=== PATIENT | female | born 1980 | race Hispanic/Latino ===

== ENCOUNTER 2018-06-26 11:31 | Observation (INO) | payer BC, OTHER, SELFPAY ==
[2018-06-26] MEDS ORDERED: NA CHLORIDE 0.9% 1,000 ML ONE (12:08)
[2018-06-26] MEDS ORDERED: KETOROLAC 30 MG/ML INJ ONE (12:08)
[2018-06-26] MEDS ORDERED: ONDANSETRON 4 MG/2 ML VIAL ONE (12:08)
[2018-06-26] MEDS ORDERED: FAMOTIDINE 20 MG/2 ML VIAL IV ONE (12:08)
[2018-06-26 12:30] LABS: ALT/SGPT 33 U/L (12-78); AST/SGOT 22 U/L (15-37); Albumin 3.6 g/dL (3.4-5.0); Alkaline Phosphatase 110 U/L (45-117); BUN Blood Urea Nitrogen 6 mg/dL (7-18); Bicarbonate 27 mmol/L (21-32); Bilirubin Direct 0.1 mg/dL (0-0.2); Bilirubin Total 0.4 mg/dL (0.2-1.0); Glucose Level 132 mg/dL (74-106); Lipase 94 U/L (73-393); Protein, Total 7.7 g/dL (6.4-8.2); Sodium Level 137 mmol/L (136-145); Troponin I < 0.02 ng/mL (0.0-0.045)
[2018-06-26 12:32] LABS: Urine Bacteria <20 /HPF (<20); Urine Culture Reflex Order NOT NEEDED; Urine Mucus 1+ /HPF (NONE SEEN)
--- NOTE | 2018-06-26 12:38 | RAD REPORT ---
EXAM DESCRIPTION: US - Abdomen Exam Limited - 06/26/2018 12:19 pm CLINICAL HISTORY: Abdominal pain, right upper quadrant pain COMPARISON: None. FINDINGS: Enlarged 18 millimeter gallstone is present fixed in the neck with additional smaller gall stones mobile within the lumen. Trace amount of pericholecystic fluid is present. No abnormal wall th ickening. No common duct stone or biliary tree dilatation identified. IMPRESSION: Large gallstone fixed in the neck with additional small mobile gallstones. Trace amount of pericholecystic fluid. No biliary tree dilatation.
[2018-06-26 12:41] LABS: Absolute Monocytes 0.2 K/uL (0.1-1.3); Absolute Neutrophil 7.3 K/uL (1.8-8.0); Basophils % 0.2 % (0-1.3); Eosinophils % 0.5 % (0-4.4); Hematocrit 37.1 % (36.0-45.0); Lymphocytes % 11.3 % (15.3-44.8); MCH 29.3 pg (27.0-35.0); MCV 84.3 fL (80-100); MPV 7.1 fL (7.6-11.3); Monocytes % 2.5 % (3.3-12.3)
--- NOTE | 2018-06-26 13:06 | RAD REPORT ---
EXAM DESCRIPTION: CT - Abdomen Pelvis W Contrast - 06/26/2018 12:51 pm CLINICAL HISTORY: Abdominal pain, epigastric pain COMPARISON: Ultrasound same date TECHNIQUE: Biphasic, helical CT imaging of the abdomen and pelvis was performed following 100 ml non -ionic IV contrast. Oral contrast was given. All CT scans are performed using dose optimization technique as appropriate and may include automated exposure control or mA/KV adjustment according to patient size. FINDINGS: No suspicious findings in the lung bases. The liver, spleen, and pancreas show no suspicious findings. No abnormal biliary tree dilatation. No acute gallbladder finding on CT imaging. Earlier ultrasound study showed a fixed stone in the neck wi th additional small gallstones. No wall thickening or pericholecystic fluid appreciated on this study . Symmetric renal function is seen with no hydronephrosis or suspicious renal mass. No adrenal abnormal ity. No pyelonephritis or acute renal parenchymal process. No urinary bladder abnormality. Uterus and ovaries show no suspicious findings. Tubal ligation clips are present. No gastric dilatation or wall thickening. Small bowel loops are not dilated. There are several fluid- filled distal small bowel loops. No evidence for appendicitis. No acute colon finding. No free air, free fluid or inflammatory stranding. No mass or bulky lymphadenopathy. Patient has a v ivy small fat only umbilical hernia. Fat extends into the left inguinal canal. Patient has an enlarge d left gonadal vein. No enhancement, thrombus or other finding to indicate an acute process. This is probably an incidental finding for this patient. No suspicious bony findings. IMPRESSION: Gallbladder and biliary tree show no significant findings on CT imaging. Earlier ultraso und demonstrated a stone fixed in the neck with additional smaller stones present. Fluid-filled distal small bowel loops are present. A nonspecific enteritis would be a consideration.
[2018-06-26 13:20] LABS: Blood Morphology Comment NOT SEEN (NOT SEEN); Platelet Estimate ADEQ; Urine White Blood Cell Casts OK
[2018-06-26] MEDS ORDERED: FENTANYL CITR 100 MCG/2 ML ONE (13:35)
--- NOTE | 2018-06-26 13:35 | ER ---
Nurse's Notes [facility] Name: Shea Gutierrez Age: 38 yrs Sex: Female : 1980 Arrival Date: 06/26/2018 Time: 11:34 Bed 15 Private MD: Ross Edgar Diagnosis: Acute upper abdominal Pain;Choledocholithiasis Presentation: 06/26 11:37 Presenting complaint: Patient states: Epigastric pain that started this morning, with sg nausea, reports hot flahses, denies F/V/Chills/D, reports taking omeprazole PO this morning due to pain feeling like indigestion and burning, denies SOB/difficulty breathing, denies prior cardiac history. Transition of care: patient was not received from another setting of care. Onset of symptoms was June 26, 2018. Risk Assessment: Do you want to hurt yourself or someone else? Patient reports no desire to harm self or others. Initial Sepsis Screen: Does the patient meet any 2 criteria? No. Patient's initial sepsis screen is negative. Does the patient have a suspected source of infection? No. Patient's initial sepsis screen is negative. Care prior to arrival: None. 11:37 Method Of Arrival: Ambulatory sg 11:37 Acuity: NINO 3 sg Historical: - Allergies: 11:39 NKDA; sg - PMHx: 11:39 ADD/ADHD; Anxiety; Hypothyroidism; sg - PSHx: 11:39 ; left ankle; sg - Immunization history:: Adult Immunizations up to date. - Social history:: Smoking status: Patient/guardian denies using tobacco. - Ebola Screening: : Patient negative for fever greater than or equal to 101.5 degrees Fahrenheit, and additional compatible Ebola Virus Disease symptoms Patient denies exposure to infectious person Patient denies travel to an Ebola-affected area in the 21 days before illness onset No symptoms or risks identified at this time. - Family history:: not pertinent. - Hospitalizations: : No recent hospitalization is reported. Screenin:54 Abuse screen: Denies threats or abuse. Denies injuries from another. Nutritional ph screening: No deficits noted. Tuberculosis screening: No symptoms or risk factors identified. Fall Risk None identified. Assessment: 11:45 General: Appears in no apparent distress. uncomfortable, obese, well groomed, Behavior ph is calm, cooperative, appropriate for age, Reports chills for 12-24 hours. Pain: Complains of pain in abdomen and epigastric area Pain does not radiate. Pain began 4 hours ago. Neuro: Level of Consciousness is awake, alert, obeys commands, Oriented to person, place, time, situation. Cardiovascular: Reports chest pain, nausea, Denies shortness of breath, syncope, vomiting, Capillary refill < 3 seconds in bilateral fingers Patient's skin is warm and dry. Chest pain is located in epigastric area. Respiratory: Airway is patent Respiratory effort is even, unlabored. GI: Abdomen is round non-distended, Bowel sounds present X 4 quads. Abd is soft X 4 quads Abdomen is tender to palpation in epigastric area and right upper quadrant Reports upper abdominal pain, epigastric pain, nausea, Patient currently denies diarrhea, vomiting. Derm: Skin is intact, is healthy with good turgor, Skin is pink, warm \T\ dry. Musculoskeletal: Circulation, motion, and sensation intact. Range of motion: intact in all extremities. 13:43 Reassessment: Patient appears in no apparent distress at this time. Patient and/or kr2 family updated on plan of care and expected duration. Pain level reassessed. Patient is alert, oriented x 3, equal unlabored respirations, skin warm/dry/pink. States pain is decreased. Vital Signs: 11:40 Pulse 99 MON; Resp 17; Temp 97.9; Pulse Ox 100% on R/A; Weight 77.11 kg (R); Pain 4/10; sg 13:25 BP 150 / 102; Pulse 75; Resp 16; Pulse Ox 100% ; kr2 ED Course: 11:34 Patient arrived in ED. sb2 11:35 Ross Edgar DO is Private Physician. sb2 11:37 Davidson Salas MD is Attending Physician. wa 11:38 Triage completed. sg 11:41 Arm band placed on. sg 11:52 Carley Knight, RN is Primary Nurse. ph 11:55 Radiology exam delayed due to lab results not completed at this time. (BUN/Creatinine). sj 11:58 Initial lab(s) drawn, by me, sent to lab. Inserted saline lock: 20 gauge in left dh3 antecubital area, using aseptic technique. Blood collected. 12:12 Urine collected: clean catch specimen, cloudy. dh3 12:17 US Abdomen Limited In Process Unspecified. EDMS 12:51 CT Abd/Pelvis - W/Contrast In Process Unspecified. EDMS 12:54 Patient has correct armband on for positive identification. Placed in gown. Bed in low ph position. Call light in reach. Side rails up X 1. segmental wall installer on. Pulse ox on. NIBP on. Warm blanket given. 12:54 Patient maintains SpO2 saturation greater than 95% on room air. ph 13:31 Taylor Edgar MD is Hospitalizing Provider. wa 13:39 EKG done, by broadband technician. reviewed by Davidson Salas MD. sm3 Administered Medications: 12:10 Drug: NS 0.9% 1000 ml Route: IV; Rate: 1 bolus; Site: left antecubital; ph 12:10 Drug: Zofran 4 mg Route: IVP; Site: left antecubital; ph 13:55 Follow up: Response: No adverse reaction kr2 12:10 Drug: Pepcid 20 mg Route: IVP; Site: left antecubital; ph 13:55 Follow up: Response: No adverse reaction kr2 12:10 Drug: TORadol 30 mg Route: IVP; Site: left antecubital; ph 13:54 Follow up: Response: No adverse reaction; Pain is decreased kr2 13:38 Drug: fentaNYL (PF) 25 mcg Route: IVP; Site: left antecubital; kr2 13:54 Follow up: Response: No adverse reaction; Pain is decreased kr2 13:38 Drug: Flagyl 500 mg Volume: 100 ml; Route: IVPB; Rate: 200 ml/hr; Infused Over: 30 kr2 mins; Site: left antecubital; 13:53 Follow up: Response: No adverse reaction; IV Status: Completed infusion kr2 13:54 Drug: LevaQUIN 500 mg Volume: 100 ml; Route: IVPB; Infused Over: 60 mins; Site: left kr2 antecubital; Outcome: 13:34 Decision to Hospitalize by Provider. wa 15:48 Patient left the ED. kr2 Signatures: Dispatcher [employer] EDMS Milton Banerjee RN RN sg Jones, Susan sj Hall, Patricia, RN RN ph Herrera, Deanna 3 Davidson Salas MD MD wa Reaves, Karey, RN RN kr2 Ella Casanova sb2 Whitney Rolle sm3
--- NOTE | 2018-06-26 13:35 | EDPHYS ---
Physician Documentation [facility] Name: Shea Gutierrez Age: 38 yrs Sex: Female : 1980 Arrival Date: 06/26/2018 Time: 11:34 Bed 15 Private MD: Ross Edgar ED Physician Davidson Salas HPI: 06/26 11:53 This 38 yrs old Female presents to ER via Ambulatory with complaints of Chest wa Pain, Nausea. 11:53 The patient or guardian reports chest pain that is located primarily in the xyphoid wa area and RUQ. Onset: today, 5 AM . The pain radiates to Associated signs and symptoms: Pertinent positives: nausea, vomiting, x4, Pertinent negatives: lightheadedness, palpitations, shortness of breath, syncope. The chest pain is described as dull, causing indigestion. Duration: The patient or guardian reports a single episode, that is still ongoing, and worsening. Modifying factors: The symptoms are alleviated by nothing. the symptoms are aggravated by nothing. Severity of pain: At its worst the pain was moderate in the emergency department the pain is actually worse moderately. The patient has experienced similar episodes in the past, a few times, less painful however. The patient has not recently seen a physician. states has had "indigestion" in the past. This more severe. did not respond to tums ingestion. denies SOB. states pain worse with deep breathing however. Historical: - Allergies: 11:39 NKDA; sg - PMHx: 11:39 ADD/ADHD; Anxiety; Hypothyroidism; sg - PSHx: 11:39 ; left ankle; sg - Immunization history:: Adult Immunizations up to date. - Social history:: Smoking status: Patient/guardian denies using tobacco. - Ebola Screening: : Patient negative for fever greater than or equal to 101.5 degrees Fahrenheit, and additional compatible Ebola Virus Disease symptoms Patient denies exposure to infectious person Patient denies travel to an Ebola-affected area in the 21 days before illness onset No symptoms or risks identified at this time. - Family history:: not pertinent. - Hospitalizations: : No recent hospitalization is reported. ROS: 11:57 Constitutional: Negative for fever, chills, and weight loss, Eyes: Negative for injury, wa pain, redness, and discharge, ENT: Negative for injury, pain, and discharge, Neck: Negative for injury, pain, and swelling, Respiratory: Negative for shortness of breath, cough, wheezing, and pleuritic chest pain, : Negative for injury, bleeding, discharge, and swelling, MS/Extremity: Negative for injury and deformity, Skin: Negative for injury, rash, and discoloration, Neuro: Negative for headache, weakness, numbness, tingling, and seizure, Psych: Negative for depression, anxiety, suicide ideation, homicidal ideation, and hallucinations. 11:57 Cardiovascular: Positive for epigastric pain, Negative for edema, orthopnea, palpitations, paroxysmal nocturnal dyspnea. 11:57 Respiratory: Negative for cough, shortness of breath, wheezing. 11:57 Abdomen/GI: Positive for abdominal pain, nausea and vomiting, of the epigastric area, Negative for diarrhea. 11:57 Back: Positive for pain at rest, of the thoracic area. 11:57 All other systems are negative. Exam: 11:59 Constitutional: This is a well developed, well nourished patient who is awake, alert, wa and in no acute distress. Head/Face: Normocephalic, atraumatic. Eyes: Pupils equal round and reactive to light, extra-ocular motions intact. Lids and lashes normal. Conjunctiva and sclera are non-icteric and not injected. Cornea within normal limits. Periorbital areas with no swelling, redness, or edema. ENT: Nares patent. No nasal discharge, no septal abnormalities noted. Tympanic membranes are normal and external auditory canals are clear. Oropharynx with no redness, swelling, or masses, exudates, or evidence of obstruction, uvula midline. Mucous membranes moist. Neck: Trachea midline, no thyromegaly or masses palpated, and no cervical lymphadenopathy. Supple, full range of motion without nuchal rigidity, or vertebral point tenderness. No Meningismus. Chest/axilla: Normal chest wall appearance and motion. Nontender with no deformity. No lesions are appreciated. Cardiovascular: Regular rate and rhythm with a normal S1 and S2. No gallops, murmurs, or rubs. Normal PMI, no JVD. No pulse deficits. Respiratory: Lungs have equal breath sounds bilaterally, clear to auscultation and percussion. No rales, rhonchi or wheezes noted. No increased work of breathing, no retractions or nasal flaring. Back: No spinal tenderness. No costovertebral tenderness. Full range of motion. Skin: Warm, dry with normal turgor. Normal color with no rashes, no lesions, and no evidence of cellulitis. MS/ Extremity: Pulses equal, no cyanosis. Neurovascular intact. Full, normal range of motion. Neuro: Awake and alert, GCS 15, oriented to person, place, time, and situation. Cranial nerves II-XII grossly intact. Motor strength 5/5 in all extremities. Sensory grossly intact. Cerebellar exam normal. Normal gait. Psych: Awake, alert, with orientation to person, place and time. Behavior, mood, and affect are within normal limits. 11:59 Abdomen/GI: Inspection: abdomen appears normal, Bowel sounds: normal, in all quadrants, Palpation: soft, in all quadrants, moderate abdominal tenderness, in the epigastric area and right upper quadrant, no appreciated organomegaly. Vital Signs: 11:40 Pulse 99 MON; Resp 17; Temp 97.9; Pulse Ox 100% on R/A; Weight 77.11 kg (R); Pain 4/10; sg 13:25 BP 150 / 102; Pulse 75; Resp 16; Pulse Ox 100% ; kr2 MDM: 11:36 Patient medically screened. wa 11:59 Differential diagnosis: acute myocardial infarction, cholecystitis, Cholelithiasis wa costochondritis, gastritis, gastroesophageal reflux disease (GERD), peptic ulcer disease, unstable angina. 13:24 Data reviewed: vital signs, nurses notes, lab test result(s), radiologic studies. Test wa interpretation: by ED physician or midlevel provider: 18 mm gallstone fixed at gallbladder neck with trace pericholecystic fluid on US. Test interpretation: by ED physician or midlevel provider: EKG: HR 76. normal. Response to treatment: the patient's symptoms have mildly improved after treatment, still with persistent pain. will give a dose of fentanyl. will admit for further eval by GI and gen surg. Physician consultation: Gaudencio Cruz MD was called at 13:28, accepted consult. advised to place on [facility] med service due to co-morbidities. Admission orders: after a detailed discussion of the patient's condition and case, the admit orders are written by nv. 06/26 11:50 Order name: Basic Metabolic Panel; Complete Time: 12:32 il 06/26 11:50 Order name: CBC with Diff; Complete Time: 13:23 il 06/26 11:50 Order name: Creatinine for Radiology; Complete Time: 12:32 il 06/26 11:50 Order name: Hepatic Function; Complete Time: 12:32 il 06/26 11:50 Order name: Lipase; Complete Time: 12:32 il 06/26 11:50 Order name: Urine Microscopic Only; Complete Time: 13:07 il 06/26 11:50 Order name: Troponin I; Complete Time: 12:32 il 06/26 11:51 Order name: US Abdomen Limited; Complete Time: 13:07 il 06/26 11:52 Order name: CT Abd/Pelvis - W/Contrast; Complete Time: 13:07 il 06/26 12:14 Order name: Urine Dipstick--Ancillary (enter results) 06/26 12:14 Order name: Urine --Ancillary (enter results) 06/26 12:47 Order name: CBC Smear Scan; Complete Time: 13:23 EDME 06/26 11:50 Order name: Urine Test (obtain specimen); Complete Time: 12:11 il 06/26 11:50 Order name: IV Saline Lock; Complete Time: 12:02 il 06/26 11:50 Order name: Labs collected and sent; Complete Time: 12:02 il 06/26 11:50 Order name: Urine Dipstick-Ancillary (obtain specimen); Complete Time: 13:44 il 06/26 11:50 Order name: EKG - Nurse/Tech; Complete Time: 13:55 il Administered Medications: 12:10 Drug: NS 0.9% 1000 ml Route: IV; Rate: 1 bolus; Site: left antecubital; ph 12:10 Drug: Zofran 4 mg Route: IVP; Site: left antecubital; ph 13:55 Follow up: Response: No adverse reaction kr2 12:10 Drug: Pepcid 20 mg Route: IVP; Site: left antecubital; ph 13:55 Follow up: Response: No adverse reaction kr2 12:10 Drug: TORadol 30 mg Route: IVP; Site: left antecubital; ph 13:54 Follow up: Response: No adverse reaction; Pain is decreased kr2 13:38 Drug: fentaNYL (PF) 25 mcg Route: IVP; Site: left antecubital; kr2 13:54 Follow up: Response: No adverse reaction; Pain is decreased kr2 13:38 Drug: Flagyl 500 mg Volume: 100 ml; Route: IVPB; Rate: 200 ml/hr; Infused Over: 30 kr2 mins; Site: left antecubital; 13:53 Follow up: Response: No adverse reaction; IV Status: Completed infusion kr2 13:54 Drug: LevaQUIN 500 mg Volume: 100 ml; Route: IVPB; Infused Over: 60 mins; Site: left kr2 antecubital; Disposition: 06/26/18 13:34 Hospitalization ordered by Taylor Edgar for Inpatient Admission. Preliminary diagnosis are Acute upper abdominal Pain, Choledocholithiasis. - Bed requested for Telemetry/MedSurg (Inpatient). - Status is Inpatient Admission. kr2 - Condition is Stable. - Problem is new. - Symptoms have improved. UTI on Admission? No Signatures: Dispatcher [employer] EDMS Mariel Ro RN RN Milton Banerjee RN RN Carley Knight RN RN Davidson Salas MD MD il Romy Ramirez RN RN kr2 Corrections: (The following items were deleted from the chart) 14:16 13:34 Hospitalization Ordered by Taylor Edgar MD for Inpatient Admission. Preliminary diagnosis is Acute upper abdominal Pain; Choledocholithiasis. Bed requested for Telemetry/MedSurg (Inpatient). Status is Inpatient Admission. Condition is Stable. Problem is new. Symptoms have improved. UTI on Admission? No. il 15:48 14:16 06/26/2018 13:34 Hospitalization Ordered by Taylor Edgar MD for Inpatient kr2 Admission. Preliminary diagnosis is Acute upper abdominal Pain; Choledocholithiasis. Bed requested for Telemetry/MedSurg (Inpatient). Status is Inpatient Admission. Condition is Stable. Problem is new. Symptoms have improved. UTI on Admission? No. dw
[2018-06-26] MEDS ORDERED: Levofloxacin500mg IV 500 MG/100 ML BAG IV ONE (13:36)
[2018-06-26] MEDS ORDERED: METRONIDAZOLE 500mg IVPB 500 MG/100 ML BAG IV ONE (13:36)
[2018-06-26 14:00] LABS: Urine Blood TRACE (NEG); Urine Glucose NEGATIVE (NEG); Urine Protein NEGATIVE (NEG); Urine Specific Gravity 1.025 (1.005-1.030); Urine pH 7.5 (5.0-7.0)
[2018-06-26] MEDS ORDERED: ACETAMINOPHEN 500 MG TAB PO PRN (16:11)
[2018-06-26] MEDS ORDERED: ONDANSETRON 4 MG/2 ML VIAL IV PRN (16:11)
[2018-06-26 16:24] VITALS: BMI 34.0
[2018-06-26] MEDS ORDERED: LORAZEPAM 0.5 MG TABLET PO PRN (17:04)
[2018-06-26] MEDS: NA CHLORIDE 0.9% 1,000 ML IV SCH (17:27)
--- NOTE | 2018-06-26 17:30 | P.HP ---
Certification for Inpatient Patient admitted to: Inpatient With expected LOS: >2 Midnights Patient will require the following post-hospital care: None Practitioner: I am a practitioner with admitting privileges, knowledge of patient current condition, hospital course, and medical plan of care. Services: Services provided to patient in accordance with Admission requirements found in Title 42 Section 412.3 of the Code of Federal Regulations Patient History Date of Service: 06/26/18 Primary Care Provider: ESTHER Reason for admission: Abd pain History of Present Illness: 38 y/o F with no pmhx presenting to the ED with RUQ pain that is radiating to the back and left side. Pt was sleeping and started having pain that started at 5AM this morning. Pain was constant and cramping in nature and thus patient decided to come to the ER. + for nausea, chills and back pain. - for vomitting, fever or any other symptoms. Had Cheese pizza at 2 to 3 Am. Pain got progressively worse. In the ED was found to have Gallstone at the neck of the gallbladder and thus admitted for further care. Allergies No Known Drug Allergies Allergy (Verified 01/24/15 07:04) Unknown Home Medications: LORazepam [Ativan] 0.5 mg PO BID PRN 01/22/15 Bupropion HCl [Bupropion Xl] 150 mg PO DAILY 06/26/18 Dextroamphetamine/Amphetamine [Adderall 10 mg Tablet] 10 mg PO BEDTIME 06/26/18 Dextroamphetamine/Amphetamine [Adderall Xr 20 mg Capsule] 20 mg PO DAILY Sertraline HCl 150 mg PO DAILY 06/26/18 - Past Medical/Surgical History Has patient received pneumonia vaccine in the past: No Diabetic: No -: hypothyroidism -: ADD -: anxiety -: asthma -: x3 -: left ankle sx x 2 - Family History Mother -: Lung disease - Social History Smoking Status: Former smoker Alcohol use: Yes CD- Drugs: No Caffeine use: Yes Place of Residence: Home Review of Systems 10-point ROS is otherwise unremarkable Physical Examination - Vital Signs Temperature: 97.9 F Blood Pressure: 150/102 Pulse: 75 Respirations: 16 - Physical Exam General: Alert, In no apparent distress HEENT: Atraumatic, PERRLA, Mucous membr. moist/pink, EOMI, Sclerae nonicteric Neck: Supple, 2+ carotid pulse no bruit, No LAD, Without JVD or thyroid abnormality Respiratory: Clear to auscultation bilaterally, Normal air movement Cardiovascular: Regular rate/rhythm, Normal S1 S2 Gastrointestinal: Normal bowel sounds, No rebound, No guarding, Tenderness (RUQ tenderness) Musculoskeletal: No tenderness Integumentary: No rashes Neurological: Normal gait, Normal speech, Normal strength at 5/5 x4 extr, Normal tone, Normal affect Lymphatics: No axilla or inguinal lymphadenopathy - Studies Laboratory Data (last 24 hrs) 06/26/18 11:58: Creatinine 0.70 06/26/18 11:58: WBC 8.5, Hgb 12.9, Hct 37.1, Plt Count 279 06/26/18 11:58: Sodium 137, Potassium 3.0 L, BUN 6 L, Creatinine 0.70, Glucose 132 H, Total Bilirubin 0.4, AST 22, ALT 33, Alkaline Phosphatase 110, Troponin I < 0.02, Lipase 94 Assessment and Plan - Plan Assessment and plan: This is a 38 y/o F with RUQ pain that is going to be admitted to the hospital for 1. RUQ pain -Abd us with 18mm Gallbladder stone -CT with obstruction of the gallbladder -Surgery Consulted. Awaiting reccs -NPO after midnight for possible surgery odalis AM 2. Clinical acute cholecytitis -IV cipro and flagyl 3. DVT and GI ppx Dispo: admit to hospital for further care - Advance Directives Does patient have a Living Will: No Does patient have a Durable POA for Healthcare: No
[2018-06-26] MEDS: TRAMADOL HCL 50 MG TAB PO PRN (18:28)
--- NOTE | 2018-06-26 19:24 | EKG ---
Test Date: 2018-06-26 Test Time: 13:16:05 Linoleum Tile Layer: SARMAD/S MEASUREMENT RESULTS: Intervals: Rate: 76 SD: 144 QRSD: 86 QT: 412 QTc: 463 [place]: P: 64 SD: 144 QRS: 14 T: 39 INTERPRETIVE STATEMENTS: Normal sinus rhythm Normal ECG Compared to ECG 12/26/2015 10:49:57 Left ventricular hypertrophy no longer present Electronically Signed On 06-26-18 19:22:47 CDT by Dimitry Mercado
[2018-06-26] MEDS: CIPROFLOXACIN 400mg IV 400 MG/200 ML BAG IV SCH (21:37)
[2018-06-27] MEDS: TRAMADOL HCL 50 MG TAB PO PRN (00:44)
[2018-06-27] MEDS: METRONIDAZOLE 500mg IVPB 500 MG/100 ML BAG IV SCH ×3 (00:44→17:00)
--- NOTE | 2018-06-27 03:59 | CON ---
Date of Consultation: 06/26/2018 Diagnosis: Acute cholecystitis, symptomatic cholelithiasis. History Of Present Illness: This is the case of a 38-year-old patient. About 2:00 to 3:00 in the mo rn, she decided to order some cheese pizza, and she ate one cheese pizza. After that this morning , she started to develop about 5 o'clock in the morning epigastric right upper quadrant pain radiatin g to the back associated with nausea and vomiting. She denies any dysuria, hematuria, hematochezia, or melena. Denies any recent traveling out of the country. Denies any family member sick at home. This afternoon, since the pain was not relieving, she decided to come to the ER, found to have gallst ones and cholecystitis and surgical consult was obtained. They noted the pain could not be controlle d so they decided to admit the patient. Past Medical History: Anxiety, hypothyroidism, ADD. Medications: Ativan, Adderall, sertraline. Past Surgical History: Three C-sections. Allergies: NONE. Family History: Noncontributory. Social History: She does not smoke. She does not drink alcohol. Review of Systems: Ten points otherwise unremarkable. Physical Examination: General: The patient is awake and alert. HEENT: Pupils are equal and reactive, anicteric. Neck: Supple. Chest: Clear. Heart: S1, S2. Abdomen: Epigastric right upper quadrant pain with Ashton sign positive. Pelvic: Deferred. Rectal: Deferred Breasts: Deferred. Extremities: Good capillary refill. Laboratory Data: Blood work shows WBC count of 8.5, hemoglobin of 12, potassium 3.0, glucose 132, to bria bilirubin of 0.4, alkaline phos of 110. Abdominal ultrasound read by Dr. Merrill as large gallst ones of the gallbladder with gallstones. The patient also have pericholecystic fluid. No biliary tree dilatation. A CAT scan of the abdomen and pelvis interpreted by Dr. Merrill as a gallb ladder with stones. Assessment: This is a 38-year-old patient with acute cholecystitis, abdominal pain, Ashton sign posi tive, and symptomatic cholelithiasis. The patient wants surgery done during this admission since the patient is not improving. Laparoscopic possible open cholecystectomy fully explained to the patient , which include but are not limited to infection, bleeding, damage to adjacent structures, anesthesia complication, choledocholithiasis, bile leak, pancreatitis, HI, and even . She also understand s this may not relieve any symptoms, she might need more than one surgical intervention. She underst ood. She will sign a consent. FERNANDO Voice ID: [id number] Report ID: [id number]
[2018-06-27] MEDS: NA CHLORIDE 0.9% 1,000 ML IV SCH ×2 (04:08→12:11)
[2018-06-27 05:28] LABS: Absolute Lymphocytes (CBC) 1.4 K/uL (0.7-4.9); Absolute Monocytes 0.4 K/uL (0.1-1.3); Absolute Neutrophil 5.4 K/uL (1.8-8.0); Basophils % 0.3 % (0-1.3); Eosinophils % 2.4 % (0-4.4); Hematocrit 32.4 % (36.0-45.0); Lymphocytes % 19.1 % (15.3-44.8); MCH 29.5 pg (27.0-35.0); MCV 84.1 fL (80-100); Monocytes % 5.9 % (3.3-12.3); RBC Red Blood Cell Count 3.85 M/uL (3.86-4.86)
[2018-06-27 06:06] LABS: ALT/SGPT 26 U/L (12-78); AST/SGOT 16 U/L (15-37); Albumin 2.8 g/dL (3.4-5.0); Alkaline Phosphatase 91 U/L (45-117); BUN Blood Urea Nitrogen 4 mg/dL (7-18); Bicarbonate 25 mmol/L (21-32); Bilirubin Total 0.5 mg/dL (0.2-1.0); Glucose Level 112 mg/dL (74-106); Protein, Total 6.2 g/dL (6.4-8.2); Sodium Level 142 mmol/L (136-145)
[2018-06-27 06:14] LABS: Potassium 2.8 mmol/L (3.5-5.1)
[2018-06-27 06:32] LABS: Magnesium 1.5 mg/dL (1.8-2.4)
[2018-06-27] MEDS: KCL 20 MEQ/100 mL IVPB 20 MEQ/100 ML BAG IV SCH ×3 (06:38→11:00)
[2018-06-27] MEDS ORDERED: Magnesium Sulfate 2gm IVPB 2 G/50 ML BAG IV ONE (09:00)
[2018-06-27] MEDS ORDERED: BUPROPION HCL XL 150 MG TAB PO SCH (09:00)
[2018-06-27] MEDS ORDERED: SERTRALINE HCL 100 MG TAB PO SCH (09:00)
[2018-06-27] MEDS: CIPROFLOXACIN 400mg IV 400 MG/200 ML BAG IV SCH (09:22)
[2018-06-27] MEDS ORDERED: Ringers Lactate 1,000 ML IV ONE ×2 (09:39→10:49)
[2018-06-27] MEDS ORDERED: FENTANYL CITR 100 MCG/2 ML ONE (09:50)
[2018-06-27] MEDS ORDERED: ROCURONIUM 50 MG/5 ML VIAL IV ONE (09:50)
[2018-06-27] MEDS ORDERED: DEXAMETHASONE 10 MG/ML VIAL ONE (09:50)
[2018-06-27] MEDS ORDERED: LIDOCAINE 2% MPF 5 ML VIAL ONE (09:50)
[2018-06-27] MEDS ORDERED: PROPOFOL 200 MG/20 ML VIAL IV ONE (09:50)
[2018-06-27] MEDS ORDERED: MIDAZOLAM HCL 2 MG/2 ML INJ ONE (09:51)
[2018-06-27] MEDS ORDERED: KETOROLAC 30 MG/ML INJ ONE (09:51)
[2018-06-27] MEDS ORDERED: ONDANSETRON HCL 40 MG/20 ML VIAL ONE (09:52)
[2018-06-27] MEDS ORDERED: SCOPOLAMINE HYDROBROMIDE PATCH TD ONE (10:02)
[2018-06-27] MEDS ORDERED: SUCCINYLCHOLINE 20 MG/ML (10 ML) IV ONE (10:02)
[2018-06-27] MEDS ORDERED: GLYCOPYRROLATE 0.2 MG/ML SYR ONE (11:04)
[2018-06-27] MEDS ORDERED: NEOSTIGMINE 1 MG/ML -5 ML SYRINGE ONE (11:04)
[2018-06-27] MEDS ORDERED: Mastisol Adhesive Liq ONE (11:09)
--- NOTE | 2018-06-27 11:12 | P.BOP ---
Preoperative diagnosis: acute cholecystitis, symptomatic cholelithiasis Postoperative diagnosis: same Primary procedure: Laparoscopic cholecystectomy Piano Sounding Board Matcher: Kylah Villalobos (Batsheva) Estimated blood loss: <10cc Specimen: gb Findings: as above Anesthesia: General Complications: None Transferred to: Recovery Room Condition: Good
[2018-06-27] MEDS ORDERED: MEPERIDINE HCL 50 MG/ML AMP ONE (11:48)
[2018-06-27] MEDS ORDERED: ALBUTEROL 2.5 MG/3 ML NEB SOL ONE (11:48)
[2018-06-27 11:58] VITALS: O2SAT 95
[2018-06-27] MEDS ORDERED: POTASSIUM 25 MEQ EFFERV TAB PO ONE (13:18)
--- NOTE | 2018-06-27 15:13 | P.SSS ---
Patient History Date of Service: 06/27/18 Primary Care Provider: ESTHER Reason for admission: Abd pain History of Present Illness: 38 y/o F with no pmhx presenting to the ED with RUQ pain that is radiating to the back and left side. Pt was sleeping and started having pain that started at 5AM this morning. Pain was constant and cramping in nature and thus patient decided to come to the ER. + for nausea, chills and back pain. - for vomitting, fever or any other symptoms. Had Cheese pizza at 2 to 3 Am. Pain got progressively worse. In the ED was found to have Gallstone at the neck of the gallbladder and thus admitted for further care. Allergies No Known Drug Allergies Allergy (Verified 01/24/15 07:04) Unknown Home Medications: LORazepam [Ativan] 0.5 mg PO BID PRN 01/22/15 Bupropion HCl [Bupropion Xl] 150 mg PO DAILY 06/26/18 Dextroamphetamine/Amphetamine [Adderall 10 mg Tablet] 10 mg PO BEDTIME 06/26/18 Dextroamphetamine/Amphetamine [Adderall Xr 20 mg Capsule] 20 mg PO DAILY Sertraline HCl 150 mg PO DAILY 06/26/18 Amox/Clavulanate [Augmentin 875-125 Tab] 875 mg PO BID #10 tab 06/27/18 Codeine/APAP [Tylenol W/Codeine #3 tab] 1 tab PO Q4HP PRN #30 tab 06/27/18 - Past Medical/Surgical History Has patient received pneumonia vaccine in the past: No Diabetic: No -: hypothyroidism -: ADD -: anxiety -: asthma -: x3 -: left ankle sx x 2 - Family History Mother -: Lung disease - Social History Smoking Status: Former smoker Alcohol use: Yes CD- Drugs: No Caffeine use: Yes Place of Residence: Home Review of Systems 10-point ROS is otherwise unremarkable Physical Examination - Vital Signs Temperature: 97.5 F Blood Pressure: 105/62 Pulse: 93 Respirations: 20 Pulse Ox (%): 96 - Physical Exam General: Alert, In no apparent distress HEENT: Atraumatic, PERRLA, Mucous membr. moist/pink, EOMI, Sclerae nonicteric Neck: Supple, 2+ carotid pulse no bruit, No LAD, Without JVD or thyroid abnormality Respiratory: Clear to auscultation bilaterally, Normal air movement Cardiovascular: Regular rate/rhythm, Normal S1 S2 Gastrointestinal: Normal bowel sounds, No tenderness Musculoskeletal: No tenderness Integumentary: No rashes Neurological: Normal gait, Normal speech, Normal strength at 5/5 x4 extr, Normal tone, Normal affect Lymphatics: No axilla or inguinal lymphadenopathy Treatment Summary: Discharge diagnosis 1. Cholelithiasis with possible acute cholecystitis status post lap cholecystectomy 2. Morbid obesity 3. Hypertension Hospital Course Overall during the hospital stay patient remained stable patient was initially admitted to the hospital for right upper quadrant pain after having a fatty meal. Patient was found to have gallbladder stone of 18 mm at the neck of the gallbladder. General surgery was consulted. Patient had a lap cholecystectomy with intraoperative cholangiogram. Patient did not have any complications post procedure. Tolerated the surgery well. Was able to ambulate and passed gas postprocedure and thus was discharged home under stable condition. - Disposition Disposition: ROUTINE DISCHARGE Condition: GOOD Patient Discharge Instructions: keep area dry for 48h then may shower. Keep sterile strips intact. Diet: AHA Activity: No lifting more than 10 lbs
[2018-06-27 17:21] VITALS: BP 105/69; TEMP 98.2
--- NOTE | 2018-06-28 00:11 | OP ---
Date of Procedure: 06/27/2018 Surgeon: Gaudencio Cruz MD Tourist Guide: SIDRA Hwang. Preoperative Diagnoses: Acute cholecystitis and symptomatic cholelithiasis. Postoperative Diagnoses: Acute cholecystitis and symptomatic cholelithiasis. Procedure: Laparoscopic cholecystectomy. Estimated Blood Loss: Less than 10 cc. Anesthesia: General plus local. Indications: This is a case of a female who comes to us with above diagnosis. Fully explained the b enefits, alternatives, and risks of laparoscopic, possible open cholecystectomy, which include, but a re not limited to infection, bleeding, damage to adjacent structures, anesthesia complications, olaf lithiasis, bile leak, pancreatitis, myocardial infarction, and even . She also understands this may not relieve any symptoms and she might need more than one surgical intervention. She understood and signed a consent. Description Of Procedure: The patient was brought to the operating room, placed in supine position. Anesthesia was done without complication. Abdominal area was prepped and draped in a sterile fashio n. Marcaine 0.5% was injected for local anesthetic, followed by sharp incision of skin in the infrau mbilical region. Incision was carried down to fascia, which was opened under direct vision. Periton eum was encountered, opened under direct vision. Vicryl #1 placed inside the fascia. Luis Eduardo trocar was carefully introduced. Pneumoperitoneum was obtained. I placed 3 more trocars, 5 mm each one of them, one in the epigastric area and two in the right upper quadrant under direct visualization. We proceeded to then deflate the area of the gallbladder with aspiration under direct visualization and the gallbladder was distended. Once we aspirated the area, we remove the needle under direct visuali zation. We put a grasper in the fundus of the gallbladder, another grasper in the infundibulum, retr acted the gallbladder in the inferolateral fashion exposing the triangle of Calot and obtaining criti shannon views of safety. The cystic duct and cystic artery were clearly isolated free circumferentially, and a connection between those and the gallbladder were clearly identified. I proceeded to ligate t hose by using at least 3 clips proximal, 1 clip distal, ligation in middle. Same was done with the c ystic artery. A small little branch of the cystic artery was also ligated using the same technique. Hepatic arteries right and left and common bile duct were protected at all times. Gallbladder was r emoved from the liver using Bovie cauterizer and removed from the abdominal cavity using an EndoCatch through the umbilical incision. The area was inspected once again. No bile leak. No bleeding. Th e gallbladder fossa with no bleeding. At that moment, I proceeded to remove the trocars under direct vision. Deflated pneumoperitoneum. Closed the fascia with 1 Vicryl. Irrigated the subcutaneous ti ssue, closed that with 3-0 chromic, and the skin in a subcuticular fashion with 3-0 chromic and Steri -Strips on top. The sponge count and instrument counts were correct. The patient tolerated the proc edure well. The patient was sent to recovery in stable condition. BANDAR/ANUPAMA Voice ID: [id number] Report ID: [id number]
== END 2018-06-27 20:05 | disposition home or self-care (01) ==
LOC: ER 11:31 → ERHOLD 13:36 → INTOOBSV 13:36 → 2ND 15:28
PROVIDERS: ADMIT Family Medicine; ATTEND Family Medicine
PROC: 0FT44ZZ Resection of Gallbladder, Percutaneous Endoscopic Approach (ICD-10-PCS; principal; 2018-06-27 09:30)
DX: K80.00 Calculus of gallbladder with acute cholecystitis without obstruction (principal); E03.9 Hypothyroidism, unspecified; F41.9 Anxiety disorder, unspecified; Z87.891 Personal history of nicotine dependence; F98.8 Other specified behavioral and emotional disorders with onset usually occurring in childhood and adolescence; E66.01 Morbid (severe) obesity due to excess calories; Z68.34 Body mass index [BMI] 34.0-34.9, adult
CPT/HCPCS: 36415; 74177; 76705; 80048; 80053; 80076; 81003; 81015; 81025; 83690; 83735; 84132; 84484; 85025; 87040; 87205; 88304; 93005; 96374; 96375; 99285; G0378; J0330; J0744; J1100; J2175; J2250; J2405; J2710; J3010; J3475; J7030; Q9967